=== PATIENT | female | born 1965 | race Caucasian/White ===

== ENCOUNTER 2016-08-26 22:00 | Inpatient (IN) | payer MEDICAID ==
--- NOTE | ~2016-08-26 | HP ---
Unit #: [id number] #: [id number] Patient: FELICITAS GARNER [id number] [place] [address] [id number] I MR#: [id number] NAME: FELICITAS GARNER. ROOM: [facility] Age: 50 Sex: F Admission Date: 08/27/2016 : 1965 Attending Physician: Manpreet Rick M.D. Admitting Physician: Manpreet Rick M.D. Primary Care Physician: Primary Care Physician No HISTORY AND PHYSICAL HISTORY OF PRESENT ILLNESS Felicitas is a 50 year old admitted to [facility] because of her continued abuse of alcohol. She has had other admissions to this facility for the same. PAST MEDICAL HISTORY 1. Long history of alcohol abuse. 2. Obesity. 3. High blood pressure. PAST SURGICAL HISTORY 1. Gastric bypass. 2. Bilateral shoulder. 3. Cholecystectomy. ALLERGIES Tetracycline, lisinopril, morphine, naproxen. SOCIAL HISTORY Smokes one pack per day, drinks a 12-pack of beer on a daily basis. Admits to abusing opioids. FAMILY HISTORY Medically noncontributory. REVIEW OF SYSTEMS CONSTITUTIONAL: No fever or chills. HEENT: Denies any sore throat, ear pain or runny nose. CARDIOVASCULAR: Denies chest pain, irregular heart rhythm or palpitations. CHEST: Denies shortness of breath or cough. No hemoptysis. GASTROINTESTINAL: Denies nausea, vomiting, diarrhea or chronic constipation. ENDOCRINE: Denies history of increased thirst or urination. No recent significant weight loss or gain. GENITOURINARY: Denies dysuria, frequency, or hematuria. SKIN: Denies any rashes. HEMATOLOGIC: Denies history of increased bleeding or bruising. MUSCULOSKELETAL: Denies any hot, swollen joints. No generalized muscle pain. NEUROLOGIC: Denies problems with vision or speech. No frequent, severe headaches. No numbness, tingling or weakness in any extremities. Denies loss of bladder or bowel control. Unit #: [id number] #: [id number] Patient: FELICITAS GARNER CURRENT MEDICATIONS 1. Detox protocol 2. Lexapro 20 mg q day 3. Latuda 40 mg q day 4. HCTZ 25 mg q day 5. Toprol XL 50 mg q day PHYSICAL EXAMINATION GENERAL: Alert, obese, in no apparent distress. VITAL SIGNS: Blood pressure 110/60, heart rate 80, respirations 16, temperature 98.6. WEIGHT: 207 pounds. HEIGHT: 5'7". SKIN: Warm and dry without rash or lesion. HEENT: Normocephalic. TMs not viewed. Oral and nasal passages clear. Conjunctivae clear. Pupils equal, round and reactive to light and accommodation. Extraocular movements intact. NECK: Supple without lymphadenopathy or thyromegaly. HEART: Regular rate and rhythm without murmur. LUNGS: Clear. ABDOMEN: Soft, nontender. : Not done. EXTREMITIES: No evidence of cyanosis, clubbing or edema. Moves all extremities without focal deficit. NEUROLOGICAL: Grossly within normal limits. Cranial Nerves: II: Visual mullen are intact. III, IV AND : Extraocular movements are intact. Pupils are equal, round and reactive to light. V: Facial sensation is grossly normal. VII: Facial movements and expression are normal. VIII: Auditory acuity grossly intact. IX, X: Uvula is midline. Phonation is normal. XI: Patient shrugs shoulders and turns head normally. XII: Tongue protrudes in the midline. Sensory and Motor Function: Sensory and motor sensation is grossly normal. Motor: moves all extremities well. Coordination: Gait is normal. Deep Tendon Reflexes: Intact. IMPRESSION Psychiatric admission. RECOMMENDATIONS PSYCHIATRIC: Per psychiatrist. MEDICAL: I see no contraindications to participating in facility's activities. MEDICAL PROGNOSIS Good. MEDICAL CONDITION Stable. Dictated by... Ora Felix P.A.-C. for Scott Looney M.D. Unit #: [id number] #: [id number] Patient: FELICITAS GARNER PRABHJOT/rozina TD: 08/27/2016 21:14 JOB #: [id number] HISTORY AND PHYSICAL Page 1 of 1 X Ora Felix HISTORY AND PHYSICAL
--- NOTE | ~2016-08-26 | PA ---
Unit #: [id number] #: [id number] Patient: FELICITAS GARNER [id number] [place] [address] [id number] I MR#: [id number] NAME: FELICITAS GARNER. ROOM: [facility] Age: 50 Sex: F Admission Date: 08/27/2016 : 1965 Date of Assessment: 08/27/2016 Attending Physician: Manpreet Rick M.D. Admitting Physician: Manpreet Rick M.D. Primary Care Physician: Primary Care Physician No PSYCHIATRIC ASSESSMENT DATE OF ASSESSMENT 08/27/2016. INFORMANTS The patient reliable; [facility], reliable; [facility], reliable. CHIEF COMPLAINT Alcohol abuse. HISTORY OF PRESENT ILLNESS Felicitas is a 50-year-old woman with a history of chemical dependence, who reports she is drinking up to 25 beers daily. She has been drinking for some months after coming to this hospital about a year ago and had active detox symptoms. She had multiple psychosocial stressors, which she blamed for her relapse, but she had no suicidal ideation, intent, or plan and was able to contract for safety. PAST PSYCHIATRIC HISTORY This is Felicitas's fourth admission to this facility. She reports she has been using alcohol since she was 15 years old. FAMILY PSYCHIATRIC HISTORY There is a family history of chemical dependence. SOCIAL HISTORY The patient is single and is erratically housed. She has also erratic employment and a [id number] support system. PAST MEDICAL HISTORY Hypertension, arthritis, and restless legs syndrome. MEDICATIONS Please see MAR. ALLERGIES Tetracycline, lisinopril, morphine, and naproxen. SUBSTANCE USE HISTORY As noted above. The patient has been drinking alcohol heavily since the age of 15. MENTAL STATUS EXAMINATION Felicitas presented as a mildly disheveled woman who appeared her stated age. Unit #: [id number] #: [id number] Patient: FELICITAS GARNER She was cooperative with the examination. Her speech was spontaneous and easily understood. Her musculoskeletal examination demonstrated mild psychomotor agitation. Her mood was irritable and anxious with a congruent affect. She was alert and fully oriented. Her memory and concentration were intact. Her thought processes were logical with no active psychosis. She denied suicidal ideation, intent, or plan. Her insight and judgment were fair. Her fund of knowledge and abstraction were fair. ASSETS AND LIABILITIES The patient is familiar with local resources, employable, and presents voluntarily. Liabilities include difficulty maintaining sobriety and unstable support. ADMITTING DIAGNOSES AXIS I: Alcohol dependence withdrawal, uncomplicated; bipolar disorder, depressed. AXIS II: No diagnosis. AXIS III: Hypertension, restless legs syndrome. AXIS IV: AXIS V: PSYCHIATRIC PLAN The patient was admitted and placed on the alcohol detox protocol. Her home psychiatric medications will be restarted and monitored for response. She will enroll in dual diagnosis groups and activities. TREATMENT GOALS Resolution of intoxication, resolution of SI, improvement in insight, and improvement in coping skills. DISCHARGE PLANNING Follow up with chemical dependence programing in the community. ESTIMATED LENGTH OF STAY 5 days. Dictated by... Manpreet Rick M.D. ETIENNE/dez TD: 08/29/2016 09:37 JOB #: [id number] PSYCHIATRIC ASSESSMENT Page 1 of 1 X Manpreet Rick MD X PSYCHIATRIC ASSESSMENT
--- NOTE | ~2016-08-26 | DS ---
Unit #: [id number] #: [id number] Patient: FELICITAS GARNER [id number] [place] [address] [id number] I MR#: [id number] NAME: FELICITAS GARNER. ROOM: P177 Age: 50 Sex: F Admission Date: 08/27/2016 : 1965 Discharge Date: 08/29/2016 Attending Physician: Manpreet Rick M.D. Primary Care Physician: Primary Care Physician No DISCHARGE SUMMARY REASON FOR ADMISSION Felicitas is a 50-year-old woman with a history of alcohol dependence, who has been drinking up to 25 beers daily. She reported multiple psychosocial stressors; however, she denied any suicidal ideation, intent, or plan and was admitted for detox. LABORATORY DATA Please see hospital chart. HOSPITAL COURSE The patient was admitted and placed on the alcohol detox protocol. Her home medications for hypertension, restless legs syndrome and bipolar disorder were restarted unchanged. She participated appropriately in unit groups and activities and had no sequela from her detox such as hallucinations, delusions, or disorientation. She was able to contract for safety once again on the date of discharge. DISCHARGE DIAGNOSES AXIS I: Alcohol dependence; bipolar disorder, depressed. AXIS II: No diagnosis. AXIS III: Hypertension and restless legs syndrome. AXIS IV: AXIS V: DISCHARGE INSTRUCTIONS Follow up with primary care physician and with [facility] in [place], [place]. DISCHARGE MEDICATIONS No prescriptions were provided. The patient was to continue on Lexapro 20 mg daily for depression, Latuda 40 mg in the morning for mood stability, Neurontin 300 mg t.i.d. for anxiety, Toprol-XL 50 mg daily for hypertension, Requip 1 mg at bedtime for restless legs syndrome, hydrochlorothiazide 25 mg daily for hypertension. CONDITION AT DISCHARGE Improved. PROGNOSIS Good if the patient maintains sobriety compliance and follow up. DIET AND ACTIVITY Unit #: [id number] #: [id number] Patient: FELICITAS GARNER Per primary care doctor. Dictated by... Manpreet Rick M.D. ETIENNE/dez TD: 09/07/2016 03:14 JOB #: [id number] DISCHARGE SUMMARY Page 1 of 1 X Manpreet Rick MD DISCHARGE SUMMARY
[2016-08-27 13:53] LABS: BASOPHIL# 0.1 X10e3 (0-0.3); BASOPHIL% 1.8 % (0-2.5); EOSINOPHIL# 0.1 X10e3 (0-0.7); EOSINOPHIL% 3.2 % (0.0-7.0); HEMATOCRIT 33.6 % (35.0-45.0); HEMOGLOBIN 10.3 gm/dL (12.0-16.0); LYMPHOCYTE# 2.2 X10e3 (1.0-3.5); LYMPHOCYTE% 52.7 % (17.0-45.0); MEAN CELL VOLUME 73.2 FL (83-96); MEAN CORPUSCULAR HEMOGLOBIN 22.4 PG (28-34); MEAN CORPUSCULAR HGB CONC 30.6 g/dL (30-36); MEAN PLATELET VOLUME 7.5 FL (6.5-11.5); MONOCYTE# 0.3 X10e3 (0-1.0); MONOCYTE% 6.6 % (3.0-12.0); NEUTROPHIL# 1.5 X10e3 (1.5-7.1); NEUTROPHIL% 35.7 % (40-75); PLATELET COUNT 246 X10e3 (140-420); RED CELL DISTRIBUTION WIDTH 21.1 % (11.0-15.5); WHITE BLOOD COUNT 4.3 X10e3 (4.0-10.5)
[2016-08-27 13:55] LABS: DIFF IND YES
[2016-08-27 13:59] LABS: ALBUMIN SERUM 3.6 g/dL (3.5-5.0); BILIRUBIN,TOTAL 0.6 mg/dL (0.2-2.0); CALCIUM SERUM 8.9 mg/dL (8.4-10.2); CREATININE SERUM 0.6 mg/dL (0.6-1.4); GLOM FILT RATE Estimated 106.3 mL/min (>60); PROTEIN TOTAL SERUM 6.3 g/dL (6.0-8.3)
[2016-08-27 15:18] LABS: MICROCYTOSIS MOD; PLATELET ESTIMATE NORMAL (NORMAL); POIKILOCYTOSIS MOD
== END 2016-08-29 15:45 | DRG 897 ==
LOC: P1E 08-27 02:58
PROVIDERS: Psychiatry & Neurology Psychiatry
PROC: HZ2ZZZZ Detoxification Services for Substance Abuse Treatment (ICD-10-PCS; principal; 2016-08-27)
DX: F10.230 Alcohol dependence with withdrawal, uncomplicated (principal); F31.9 Bipolar disorder, unspecified; I10 Essential (primary) hypertension; G25.81 Restless legs syndrome; Z88.5 Allergy status to narcotic agent; Z88.8 Allergy status to other drugs, medicaments and biological substances; M19.90 Unspecified osteoarthritis, unspecified site; Z98.84 Bariatric surgery status; Z90.49 Acquired absence of other specified parts of digestive tract; F17.210 Nicotine dependence, cigarettes, uncomplicated; E66.9 Obesity, unspecified; Z68.32 Body mass index [BMI] 32.0-32.9, adult
CPT/HCPCS: 80053; 85025

== ENCOUNTER 2016-09-27 16:36 | Inpatient (IN) | payer MEDICAID ==
[~2016-09-27] VITALS: Ht 170.2 cm; Wt 94.8 kg
--- NOTE | ~2016-09-27 | HP ---
Unit #: [id number] #: [id number] Patient: JOSIAH GARNER [id number] [facility] [address] [place] [address] [id number] I MR#: [id number] NAME: JOSIAH GARNER. ROOM: P185 Age: 50 Sex: F Admission Date: 09/27/2016 : 1965 Attending Physician: Manpreet Rick M.D. Admitting Physician: Manpreet Rick M.D. Primary Care Physician: Generic Doctor Not In System HISTORY AND PHYSICAL HISTORY OF PRESENT ILLNESS The patient is a 50-year-old female who has been admitted to [facility] for alcohol abuse. She had had other admissions to this facility for the same. PAST MEDICAL HISTORY 1. Alcohol abuse. 2. Hypertension. 3. Obesity. PAST SURGICAL HISTORY 1. Gastric bypass. 2. Bilateral shoulder surgery. 3. Cholecystectomy. ALLERGIES Morphine, naproxen, lisinopril, Percocet, and tetracycline. HOME MEDICATIONS 1. HCTZ 25 mg p.o. in the morning. 2. Metoprolol 50 mg p.o. in the morning. 3. Neurontin 300 mg p.o. t.i.d. 4. Ropinirole 1 mg p.o. at night. 5. Lexapro 20 mg p.o. in the morning. FAMILY HISTORY Medically noncontributory. SOCIAL HISTORY The patient endorses tobacco and alcoholism and does admit (1) __ in the past. REVIEW OF SYSTEMS CONSTITUTIONAL: Denies fever or chills. HEENT: Denies sore throat, ear pain, or runny nose. CARDIOVASCULAR: Denies chest pain, irregular heart rhythm, or palpitations. CHEST: Denies shortness of breath or cough. No hemoptysis. GI: Denies nausea, vomiting, diarrhea, or chronic constipation. ENDOCRINE: Denies increased thirst or urination. Denies any recent weight loss or gain. : Denies dysuria, frequency, or hematuria. SKIN: Denies rashes. Unit #: [id number] #: [id number] Patient: JOSIAH GARNER HEMATOLOGIC: Denies increased bleeding or bruising. MUSCULOSKELETAL: Denies hot, swollen joints. No generalized pain. NEUROLOGIC: Denies problems with speech, vision, numbness, or tingling. Denies loss of bowel or bladder control. PHYSICAL EXAMINATION GENERAL: The patient is awake, alert, in no acute distress. VITAL SIGNS: Temperature 98.1, heart rate 66, respirations 16, blood pressure 118/72. She is 5 feet 7 and weighs 209 pounds. HEENT: Head is atraumatic, normocephalic. Pupils are equal, round, and reactive. Extraocular movements are intact. No drainage from ears or nose. NECK: Supple. Trachea is midline. HEART: Regular rate and rhythm. LUNGS: Clear. ABDOMEN: Soft, nontender, nondistended. : Not done. SKIN: Warm, dry, with no unusual rashes or lesions. EXTREMITIES: No clubbing, cyanosis, or edema. NEUROLOGIC: Cranial nerves II through XII are intact. No focal deficits. Sensory/motor function: Grossly normal. Moves all extremities well. Coordination: Gait normal. Deep tendon reflexes intact. IMPRESSION Psychiatric admission. RECOMMENDATIONS PSYCHIATRIC: Per psychiatry. MEDICAL: I see no contraindication to participate in the facility activities. MEDICAL PROGNOSIS Fair. MEDICAL CONDITION Stable. Dictated by... Nisreen Webber A.P.R.N. AM/carly TD: 09/28/2016 13:11 JOB #: [id number] Unit #: [id number] #: [id number] Patient: JOSIAH GARNER HISTORY AND PHYSICAL Page 1 of 1 X Nisreen Webber APRN X HISTORY AND PHYSICAL
--- NOTE | ~2016-09-27 | PN ---
Unit #: [id number] #: [id number] Patient: FELICITAS GARNER [id number] [facility] [address] [place] [address] [id number] I MR#: [id number] NAME: FELICITAS GARNER ROOM: P185 Age: 50 Sex: F Admission Date: 09/27/2016 : 1965 Attending Physician: Manpreet Rick M.D. Admitting Physician: Manpreet Rick M.D. Primary Care Physician: Generic Doctor Not In System [facility] PROGRESS NOTES DATE 09/30/2016 DISCUSSION Felicitas has decreased detox symptoms today. Her mood is brighter and less anxious with a brighter affect. She is alert and fully oriented. Her memory and concentration are intact. Her thought processes are logical with no active psychosis and no suicidal ideation. ASSESSMENT Alcohol dependence. PLAN We will schedule the patient's discharge for tomorrow, and she will return to [place] to follow up with the [facility]. Dictated by... Tracie TranH/carly TD: 10/02/2016 10:23 JOB #: [id number] [facility] PROGRESS NOTES Page 1 of 1 X Manpreet Rick MD PROGRESS NOTE
--- NOTE | ~2016-09-27 | DS ---
Unit #: [id number] #: [id number] Patient: JSOIAH GARNER [id number] [place] [address] [id number] I MR#: [id number] NAME: JOSIAH GARNER ROOM: P185 Age: 50 Sex: F Admission Date: 09/27/2016 : 1965 Discharge Date: 10/01/2016 Attending Physician: Manpreet Rick M.D. Primary Care Physician: Generic Doctor Not In System DISCHARGE SUMMARY REASON FOR ADMISSION Josiah is a 50-year-old woman with a history of alcohol dependence, who was recently discharged from our hospital. She reports that she had a relapse, thinking that she could "just drink a little bit," which escalated into a full-scale relapse, drinking several beers or a pint of vodka daily. She had active detox symptoms and was admitted for further stabilization. DIAGNOSTIC STUDIES LABORATORY RESULTS: Please see hospital chart. HOSPITAL COURSE The patient was admitted and placed on the alcohol detox protocol. Her home medications for her mood disorder were restarted unchanged. She had an uneventful period of detox and has participated appropriately in unit groups and activities. On the date of discharge, she had completed detox without any adverse events and once again contracted for safety in the outpatient setting. DISCHARGE DIAGNOSES AXIS I: Alcohol dependence with withdrawal, uncomplicated, F11.23 and major depressive disorder versus bipolar depressed. AXIS II: No diagnosis. AXIS III: Hypertension, restless legs syndrome, and status post gastric bypass. AXIS IV: AXIS V: DISCHARGE INSTRUCTIONS Follow up with primary care physician and chemical dependence programing at the [facility] in [place], [place]. DISCHARGE MEDICATIONS No prescriptions were provided. The patient was continued on Lexapro 20 mg daily for depression, gabapentin 300 mg t.i.d. for mood stability, Requip 1 mg at bedtime for restless legs, metoprolol 50 mg daily for hypertension, and hydrochlorothiazide 25 mg daily for hypertension from her primary care physician. CONDITION AT DISCHARGE Improved. Unit #: [id number] #: [id number] Patient: JOSIAH GARNER PROGNOSIS Good. DIET AND ACTIVITY Per primary care doctor. Dictated by... Manpreet Rick M.D. [facility]/dez TD: 10/02/2016 17:38 JOB #: [id number] DISCHARGE SUMMARY Page 1 of 1 X Manpreet Rick MD DISCHARGE SUMMARY
--- NOTE | ~2016-09-27 | PA ---
Unit #: [id number] #: [id number] Patient: FELICITAS GARNER [id number] [place] [address] [id number] I MR#: [id number] NAME: FELICITAS GARNER. ROOM: 85 Age: 50 Sex: F Admission Date: 09/27/2016 : 1965 Date of Assessment: Attending Physician: Manpreet Rick M.D. Admitting Physician: Manpreet Rick M.D. Primary Care Physician: Generic Doctor Not In System PSYCHIATRIC ASSESSMENT DATE OF SERVICE 09/28/2016. INFORMANTS The patient reliable; [facility], reliable. CHIEF COMPLAINT Detox. HISTORY OF PRESENT ILLNESS Felicitas is a 50-year-old woman who came to [facility] reporting a relapse on alcohol. She believes that she could "just drink a little," but her use escalated up to 24 beers daily. She expresses the need for more intensive outpatient services and denied suicidal ideation, intent, or plan. She was admitted for alcohol detox. PAST PSYCHIATRIC HISTORY This is Felicitas's sixth admission to [facility] for alcohol detox. She reports use of alcohol since her mid teenage years. She has episodic periods of sobriety. FAMILY PSYCHIATRIC HISTORY Family history of chemical dependence. SOCIAL HISTORY The patient is single and has erratic housing and support. She is not employed at this time. PAST MEDICAL HISTORY Hypertension, arthritis, restless legs syndrome, and status post gastric bypass. MEDICATIONS Please see MAR. ALLERGIES Tetracyclines, lisinopril, morphine and naproxen. SUBSTANCE USE HISTORY As noted in previous assessments. MENTAL STATUS EXAMINATION Felicitas presented as a mildly disheveled woman who appeared her stated age. Unit #: [id number] #: [id number] Patient: FELICITAS GARNER She was cooperative with the examination. Her speech was easily understood. Musculoskeletal examination demonstrated some lower back pain. Mood was mildly depressed with a congruent affect. She was alert and fully oriented. Her memory and concentration were intact. Her thought processes were logical with no psychosis. She had no suicidal ideation, intent, or plan and no homicidal ideation. Insight and judgment were intact. Fund of knowledge and abstraction were fair. ASSETS AND LIABILITIES Assets; the patient knows local resources and has a history of employment and history of sobriety. 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 ADMITTING DIAGNOSES AXIS I: Alcohol dependence with withdrawal, uncomplicated, F10.230; bipolar disorder, depressed. AXIS II: No diagnosis. AXIS III: Hypertension, restless legs syndrome, status post gastric bypass. AXIS IV: AXIS V: PSYCHIATRIC PLAN The patient was admitted and placed on the alcohol detox protocol. Acetaminophen will be employed for treatment of her back pain and her home medications for her bipolar disorder will be explored and restarted. She will enroll in dual diagnosis groups and activities. TREATMENT GOALS Resolution of intoxication, improvement in insight, and improvement in coping skills. DISCHARGE PLANNING Follow up with chemical dependence resources and community mental health. ESTIMATED LENGTH OF STAY 5 days. Dictated by... Manpreet Rick M.D. ETIENNE/dez TD: 09/28/2016 16:47 JOB #: [id number] Unit #: [id number] #: [id number] Patient: FELICITAS GARNER PSYCHIATRIC ASSESSMENT Page 1 of 1 X Manpreet Rick MD PSYCHIATRIC ASSESSMENT
== END 2016-10-01 17:55 | DRG 897 ==
LOC: P1E 20:34
PROC: HZ2ZZZZ Detoxification Services for Substance Abuse Treatment (ICD-10-PCS; principal; 2016-09-27)
DX: F10.230 Alcohol dependence with withdrawal, uncomplicated (principal); I10 Essential (primary) hypertension; G25.81 Restless legs syndrome; Z98.84 Bariatric surgery status; Z90.49 Acquired absence of other specified parts of digestive tract; F32.9 Major depressive disorder, single episode, unspecified
CPT/HCPCS: 86592